=== PATIENT | male | born 1965 | race Caucasian/White ===

== ENCOUNTER 2017-01-04 10:55 | Emergency (ER) | payer OTHER ==
[~2017-01-04] VITALS: Ht 182.9 cm; Wt 115.0 kg
[2017-01-04 11:02] VITALS: TEMP 36.7; Ht 182.9 cm; Wt 115.0 kg
[2017-01-04] MEDS ORDERED: XYLOCAINE 1%/SOD BICARB 20 ML VIAL INFIL ONE (11:36)
[2017-01-04] MEDS ORDERED: CEPH500C PO (12:03)
[2017-01-04 12:14] VITALS: BP 125/78; PULSE 85; O2SAT 98
--- NOTE | 2017-01-04 17:31 | EMERGENCY ROOM VISIT NOTE ---
ED Visit Note First contact with patient: 11:30 Chief complaint: Right index finger laceration HPI: This 51-year-old white male presents for evaluation of a laceration on his right index finger. The patient was helping to put a tailgate on a truck when a coworker accidentally closed too fast and the patient sustained a laceration on the flexor surface of the DIP joint of his index finger. Bleeding was controlled with pressure. They deny any numbness, tingling, or loss of motion. No other complaints. Right-hand dominant. Tetanus is believed to be up-to- date. Pain is 2/10. Supplemental sheet was reviewed. 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 Lives at home with 6 children. REVIEW OF SYSTEM: HEENT: No dizziness, visual problems, hearing loss, or tinnitus. There is no difficulty swallowing and no oral lesions are present. PULMONARY: No cough, shortness of breath, sputum production or hemoptysis. CARDIOVASCULAR: No chest pain, palpitations, shortness of breath or peripheral edema. GASTROINTESTINAL: No diarrhea, constipation, nausea, vomiting, or abdominal pain. GENITOURINARY: No dysuria, frequency, urgency or nocturia. NEUROLOGIC: No weakness, muscle tenderness, epilepsy or history of neurological problems. MUSCULOSKELETAL: No history of joint tenderness/swelling. No history of arthritis or arthralgias. SKIN: No rashes or lesions. ENDOCRINE: No history of diabetes, thyroid disorders, or abnormal hair growth. Physical Exam: Vitals: Afebrile. Reviewed and filed in patient's chart General: Well-developed, well-nourished, middle-aged white male, in no acute distress. Obvious discomfort. He is sitting on the bed. Alert and oriented. Skin: Warm and dry with good turgor. No rashes. No ecchymosis or erythema. The patient is not diaphoretic. No abrasions. The patient has a 2 cm laceration present on the flexor surface of his index finger DIP joint. It is right in the crease. No foreign material is visible. Flexor tendon is visible in the wound. Musculoskeletal: Patient has full flexion and extension of the index finger. Strength is 5/5 for resisted flexion and extension. FDP and FDS functions are clearly intact by isolation. Neurologic: Gross sensation is intact across the index finger by soft touch. Capillary refill is equal to the other digits. Impression: Right index finger 2 cm laceration with tendon exposure Procedure: Informed oral consent was obtained for repair. Right index finger was prepped with Betadine and draped with a sterile towel. Area was anesthetized using 4 mL 1% plain buffered lidocaine in a digital block. Finger tourniquet was placed. Thorough inspection was performed. Patient did expose the flexor tendon but there is no tendon injury. He did transect the tendon sheath. Wound was irrigated copiously using normal sterile saline under jet spray lavage. Wound was closed using 4-0 nylon. Excellent wound edge approximation was achieved. Hemostasis was achieved. Plan: Patient was educated regarding today's findings. Conservative care measures were discussed. Cleanse the wound daily with soap and water and reapply a small amount of bacitracin. Ice and elevate intermittently as needed for discomfort. Tylenol and ibuprofen every 6 hours as needed for pain. Wound care handout was provided. Prescription was provided for Keflex 500 mg 3 times a day 5 days as prophylaxis against infection. Sutures out in 12 days. He may shower. Avoid soaking or swimming for two weeks. Return to the ER for any acute changes or signs of infection. He will need to cover it and protected while at work. Patient is aware. Current/Historical Medications Scheduled Cephalexin Monohydrate (Keflex), 500 MG PO TID Allergies Coded Allergies: No Known Allergies (Unverified , 01/04/17) Vital Signs Date Time Temp Pulse Resp B/P (MAP) Pulse Ox O2 Delivery O2 Flow Rate FiO2 01/04/17 12:14 85 18 125/78 98 01/04/17 11:02 36.7 86 16 132/80 94 Room Air Departure Information Impression Primary Impression: Laceration of right index finger Dispostion Home / Self-Care Condition GOOD Prescriptions Cephalexin Monohydrate (Keflex) 500 Mg Cap 500 MG PO TID, #15 CAP Prov: Jama Hylton,P.A. 01/04/17 Forms WORK / SCHOOL INSTRUCTIONS, HOME CARE DOCUMENTATION FORM, MOTRIN USE, TYLENOL USE, WOUND CARE INSTRUCTIONS, IMPORTANT VISIT INFORMATION Patient Instructions My [facility] Additional Instructions Cleanse the wound daily with soap and water Avoid swimming or soaking for 2 weeks you may shower and wash your hands Tylenol and Motrin every 6 hours as needed for discomfort Sutures out in 12 days Return to the ED for any acute changes or signs of infection
== END 2017-01-04 12:17 | disposition home or self-care (01) ==
LOC: C.EDB 10:57 → C.EDD 12:17
DX: S61.210A Laceration without foreign body of right index finger without damage to nail, initial encounter (principal); W23.0XXA Caught, crushed, jammed, or pinched between moving objects, initial encounter; Y99.0 Civilian activity done for income or pay